=== PATIENT | female | born 1970 | race Caucasian/White ===

== ENCOUNTER 2018-03-03 10:56 | Emergency (ER) | payer OTHER ==
[~2018-03-03] VITALS: Ht 172.7 cm; Wt 77.0 kg
[2018-03-03] MEDS ORDERED: HYDROCODONE/ACETAMINOPHEN 5/325MG TABLET PO STA (12:47)
[2018-03-03 13:14] VITALS: BP 123/81
[2018-03-03 14:17] LABS: CLARITY URINE CLEAR (CLEAR); COLOR URINE DARK YELLOW (YELLOW); KETONES URINE 1+ (NEGATIVE); LEUKOCYTE ESTERASE URINE NEGATIVE (NEGATIVE); NITRITE URINE NEGATIVE (NEGATIVE); OCCULT BLOOD URINE NEGATIVE (NEGATIVE); PH URINE 6.5 (4.5-8.0); PROTEIN URINE 1+ (NEGATIVE); SPECIFIC GRAVITY URINE 1.035 (1.005-1.030)
[2018-03-03] MEDS ORDERED: DEXAMETHASONE 10 MG/ML VIAL IM ONE (16:00)
== END 2018-03-03 16:07 | disposition home or self-care (01) ==
LOC: ER 11:24
DX: M54.42 Lumbago with sciatica, left side (principal); Z88.6 Allergy status to analgesic agent
CPT/HCPCS: 72100; 81003; 96372; 99285; J1100; J7030; Z7610